=== PATIENT | female | born 1980 | race Hispanic/Latino ===

== ENCOUNTER → 2019-06-16 | Outpatient (CLI) | payer BC | END | disposition home or self-care (01) | LOC: RAH 14:12 | PROVIDERS: ATTEND Specialist | DX: Z12.31 Encounter for screening mammogram for malignant neoplasm of breast (principal) | CPT/HCPCS: 77067 ==

== ENCOUNTER → 2020-06-16 | Outpatient (CLI) | payer BC | END | disposition home or self-care (01) | LOC: RAH 08:40 | PROVIDERS: ATTEND Internal Medicine | DX: Z12.31 Encounter for screening mammogram for malignant neoplasm of breast (principal) | CPT/HCPCS: 77067 ==

== ENCOUNTER 2021-01-10 06:30 | Day surgery (SDC) | payer BC ==
[2021-01-10] VITALS (19 sets, daily range): BP systolic 118–172; BP diastolic 62–112
[~2021-01-10] VITALS: Ht 163.8 cm; Wt 128.8 kg
[~2021-01-10 06:30] MED LIST: ASCO100T12 PO; ESCI5TAB PO; LEVO88CA4 PO; PROG100C11 PO; SITA50TA PO; iron PO; vitamin d PO
[2021-01-10] MEDS ORDERED: PHENAZOPYRIDINE HCL 200 MG TABLET ONE (07:09)
[2021-01-10] MEDS ORDERED: 0.9%NACL 1000ML 1,000 ML IV ONE (07:09)
[2021-01-10] MEDS ORDERED: CLINDAMYCIN IVPB 900MG/50ML 50 ML IV ONE (07:09)
[2021-01-10] MEDS ORDERED: METRONIDAZOLE 500MG/100ML BAG 100 ML ONE (07:09)
[2021-01-10] MEDS ORDERED: SUCCINYLCHOLINE 200MG/10ML SYR ONE (07:24)
[2021-01-10] MEDS ORDERED: LIDOCAINE PF 100MG/5ML (2%) SYRINGE 5ML ONE (07:24)
[2021-01-10] MEDS ORDERED: PROPOFOL 10 MG/ML 20ML VIAL IV ONE (07:24)
[2021-01-10] MEDS ORDERED: FENTANYL CITRATE PF 50 MCG/1 ML 2ML VIAL ONE ×3 (07:25→10:30)
[2021-01-10] MEDS ORDERED: ROCURONIUM 10MG/1ML SYR 10 MG/ML ML ONE ×2 (07:25→09:38)
[2021-01-10] MEDS ORDERED: BUPIVACAINE LIPOSOME/PF 266 MG/20 ML ML IV SCH (07:30)
[2021-01-10] MEDS ORDERED: INSULIN HUMULIN R 100 UNIT/ML 3ML ONE (07:48)
[2021-01-10] MEDS ORDERED: PHENYLEPHRINE HCL 10 MG/ML 1ML VIAL IV ONE (08:27)
[2021-01-10] MEDS ORDERED: 0.9%NACL 10ML VIAL ONE (08:27)
[2021-01-10] MEDS ORDERED: EPHEDRINE SULFATE 50 MG/ML AMPULE ONE (08:31)
[2021-01-10] MEDS ORDERED: MEPERIDINE-PF 25 MG/ML SYG ONE (09:04)
[2021-01-10] MEDS ORDERED: KETOROLAC 30MG VIAL (30MG/ML) ONE (09:59)
[2021-01-10] MEDS ORDERED: NEOSTIGMINE 5MG/5ML SYR IV ONE (09:59)
[2021-01-10] MEDS ORDERED: GLYCOPYRROLATE 1 MG/5 ML SYRINGE ONE (09:59)
[2021-01-10] MEDS ORDERED: ONDANSETRON 4MG INJ ONE ×2 (10:45→12:24)
[2021-01-10] MEDS ORDERED: LABETALOL 20MG SYG IV ONE ×2 (11:09→11:34)
[2021-01-10] MEDS ORDERED: ACETAMINOPHEN 500 MG TABLET ONE (12:24)
[2021-01-10] MEDS ORDERED: MORPHINE 10MG VIAL ONE (12:24)
[2021-01-10] MEDS ORDERED: ENOXAPARIN SODIUM 30 MG/0.3 ML SQ ONE (12:56)
[2021-01-10] MEDS ORDERED: ENOXAPARIN SODIUM 30 MG/0.3 ML SQ SCH (13:00)
== END 2021-01-10 14:07 | disposition home or self-care (01) ==
LOC: DAH 06:30
PROVIDERS: ATTEND Obstetrics & Gynecology
DX: N92.0 Excessive and frequent menstruation with regular cycle (principal); Z20.822 Contact with and (suspected) exposure to COVID-19; N72 Inflammatory disease of cervix uteri; N80.0 Endometriosis of uterus; D25.9 Leiomyoma of uterus, unspecified; D50.0 Iron deficiency anemia secondary to blood loss (chronic); E66.01 Morbid (severe) obesity due to excess calories; F43.23 Adjustment disorder with mixed anxiety and depressed mood; E11.29 Type 2 diabetes mellitus with other diabetic kidney complication; F41.0 Panic disorder [episodic paroxysmal anxiety]; E03.9 Hypothyroidism, unspecified; Z83.3 Family history of diabetes mellitus; Z82.61 Family history of arthritis; Z83.49 Family history of other endocrine, nutritional and metabolic diseases; Z90.49 Acquired absence of other specified parts of digestive tract; Z68.42 Body mass index [BMI] 45.0-49.9, adult; Z79.899 Other long term (current) drug therapy; Z98.890 Other specified postprocedural states; Z88.0 Allergy status to penicillin; Z98.891 History of uterine scar from previous surgery
CPT/HCPCS: 58571; S2900; 36415; 82947; 82948; 84703; 86850; 86900; 86901; 87635; A4344; C9290; C9803; J0330; J1650; J1815; J1885; J2001; J2175; J2270; J2370; J2405; J2704; J2710; J3010; J3490; J7030

== ENCOUNTER → 2023-01-13 | Outpatient (CLI) | payer BC | END | disposition home or self-care (01) | LOC: RAH 09:41 | PROVIDERS: ATTEND Obstetrics & Gynecology | DX: Z12.31 Encounter for screening mammogram for malignant neoplasm of breast (principal) | CPT/HCPCS: 77067 ==

== ENCOUNTER → 2024-02-23 | Outpatient (CLI) | payer BC ==
--- NOTE | 2024-02-23 15:22 | HMCIMG ---
US TRANSVAGINAL NON-OB LIMITED REASON: UNSPECIFIED OVARIAN CYST COMPARISON: None TECHNIQUE: Transvaginal pelvic sonogram was performed. FINDINGS: Uterus is absent. Right ovary appears unremarkable. There is a left-sided paraovarian cyst measuring 5.2 x 5.9 cm, this is well-circumscribed without septations or solid components. There is an adjacent 1.9 x 2.5 cm cyst, this appears more complex, possibly complicated by hemorrhage or infection, with some low-level internal echoes. Short-term the interval follow-up is recommended of these lesions, both to ensure stable size or regression and to give further evaluate the complex a smaller cyst. Short-term follow-up also helps a exclude the less likely possibility of cystic mass. IMPRESSION: 1. Absent uterus and normal-appearing right ovary. 2. Simple appearing 5.2 x 5.9 cm cyst left ovary, cystic mass considered unlikely. 3. More complex 9 x 2.5 cm left-sided cyst, low-level internal echoes, possibly simply complicated by hemorrhage or infection. 4. Short-term interval sonographic follow-up recommended.
--- NOTE | 2024-02-24 09:00 | HMCIMG ---
SCREENING MAMMOGRAM REASON: Annual Exam COMPARISON: 01/13/2023 TECHNIQUE: CC and MLO views of the bilateral breasts were performed.CAD was performed as well. FINDINGS: Parenchymal density: There are scattered areas of fibroglandular density. There are no focal mass lesions. There are no pathologic appearing calcifications. There is no evidence of architectural distortion or skin thickening. IMPRESSION: Normal screening mammogram The patient was entered into a reminder system with a target due date for their next mammogram. BI-RADS CATEGORY 1: NEGATIVE Recommend monthly self breast exam as well as annual clinical examination. A negative x-ray should not delay biopsy if a dominant or clinically suspicious mass is present, since 8-10% of cancers are not identified by mammography. Dense breasts particularly, may obscure an underlying neoplasm. Some of these may be detected clinically and therefore, clinical examination is an essential part of breast evaluation.
== END | disposition home or self-care (01) ==
LOC: RAH 13:55
PROVIDERS: ATTEND Obstetrics & Gynecology
DX: Z12.31 Encounter for screening mammogram for malignant neoplasm of breast (principal); R92.323 Mammographic fibroglandular density, bilateral breasts; N83.202 Unspecified ovarian cyst, left side; Z90.710 Acquired absence of both cervix and uterus
CPT/HCPCS: 76857; 77067

== ENCOUNTER → 2025-02-23 | Outpatient (CLI) | payer BC ==
[~2025-02-23] MED LIST changes: -LEVO88CA4 PO; +LEVO88CA5 PO
== END | disposition home or self-care (01) ==
LOC: RAH 15:02
PROVIDERS: ATTEND Obstetrics & Gynecology
DX: Z12.31 Encounter for screening mammogram for malignant neoplasm of breast (principal)
CPT/HCPCS: 77067